=== PATIENT | female | born 1960 ===

== ENCOUNTER 2019-02-04 00:24 | Emergency (ER) | payer OTHER ==
[2019-02-04 00:27] VITALS: BMI 29.2
--- NOTE | 2019-02-04 00:46 | ED PDOC ---
Arrival/HPI - General Historian: Patient - History of Present Illness Narrative History of Present Illness (Text): Patient is a 58 year old female with no significant past history presenting with chief complaint of head trauma which occurred within the past hour. Patient was at a social event where she had a few alcoholic drinks, tripped on stairs and fell. Admits to headache and some pain in her left hand. Denies dizziness, loss of consciousness, nausea, vomiting, hearing or vision changes. Time/Duration: 1 hour Symptom Onset: Sudden Symptom Course: Unchanged Quality: Aching Context: Tripped <Viridiana Quiñonezleandro Micki - Last Filed: 02/04/19 02:34> <Del Guzmán - Last Filed: 02/04/19 19:17> - General Chief Complaint: Trauma Past Medical History - Provider Review Nursing Documentation Reviewed: Yes - Psychiatric Hx Substance Use: No - Anesthesia Hx Anesthesia: No <Viridiana Quiñonezleandro Sweet - Last Filed: 02/04/19 02:34> Family/Social History - Physician Review Nursing Documentation Reviewed: Yes Family/Social History: No Known Family HX Smoking Status: Never Smoked Hx Alcohol Use: Yes Hx Substance Use: No <Viridiana Quiñonezleandro Micki - Last Filed: 02/04/19 02:34> Allergies/Home Meds <Viridiana Quiñonezleandro Sweet - Last Filed: 02/04/19 02:34> <Del Guzmán - Last Filed: 02/04/19 19:17> Allergies/Adverse Reactions: Allergies No Known Allergies Allergy (Verified 02/04/19 00:27) Home Medications: Home Meds Medication Instructions Recorded Confirmed No Known Home Med 02/04/19 02/04/19 Review of Systems - Physician Review All systems were reviewed & negative as marked: Yes - Review of Systems Respiratory: Normal Cardiovascular: Normal Gastrointestinal: Normal Neurological: Headache <Viridiana Quiñonezleandro Micki - Last Filed: 02/04/19 02:34> Physical Exam Vital Signs Reviewed: Yes Appearance: Positive for: Non-Toxic Pain Distress: Mild Mental Status: Positive for: Alert and Oriented X 3 - Systems Exam Head: Present: Swelling Pupils: Present: PERRL Extroacular Muscles: Present: EOMI Conjunctiva: Present: Normal Mouth: Present: Moist Mucous Membranes Neck: Present: Normal Range of Motion Respiratory/Chest: Present: Clear to Auscultation, Good Air Exchange. No: Respiratory Distress, Accessory Muscle Use Cardiovascular: Present: Regular Rate and Rhythm, Normal S1, S2 Abdomen: Present: Normal Bowel Sounds. No: Tenderness, Distention Neurological: Present: GCS=15, CN II-XII Intact, Speech Normal, Motor Func Grossly Intact Skin: Present: Warm, Dry, Normal Color Psychiatric: Present: Alert, Oriented x 3, Normal Insight, Normal Concentration <Min Quiñonez - Last Filed: 02/04/19 02:34> Vital Signs Temp Pulse Resp BP Pulse Ox 02/04/19 01:15 97.6 F 80 20 138/78 95 <Del Guzmán - Last Filed: 02/04/19 19:17> Medical Decision Making - Lab Interpretations I have reviewed the lab results: Yes - RAD Interpretation Radiology Orders: 02/04/19 00:40 HEAD W/O CONTRAST [CT] Stat - Medication Orders Current Medication Orders: Discontinued Medications Ibuprofen (Motrin Tab) 600 mg PO ONCE ONE Stop: 02/04/19 00:43 <Min Quiñonez - Last Filed: 02/04/19 02:34> ED Course and Treatment: Impression: Pt seen and evaluated with medical insurance biller. Aware and agree with HPI, clinical findings, plan, and management. Pt, with no significant past medical history, presented s/p trip and falal earlier this evening. Pt reports she hit her head and notes some left hand pain. Plan: -- CT Head w/o contrast -- EKG -- XR Left Hand -- Labs -- Motrin -- Reassess and disposition Progress Notes: 02/04/19 02:27 CT Head: BRAIN: No evidence for acute intracranial hemorrhage. No midline shift or mass effect. VENTRICLES: No hydrocephalus. ORBITS: The orbits are unremarkable. SINUSES AND MASTOIDS: The paranasal sinuses and mastoid air cells are clear. BONES: No evidence for displaced calvarial fracture. SOFT TISSUES: There is soft tissue swelling and hematoma at the right parietal scalp. MISCELLANEOUS: No evidence for acute territorial infarction. IMPRESSION: 1. There is soft tissue swelling and hematoma at the right parietal scalp. 2. No evidence for acute intracranial abnormality. Electronically signed on Feb 04, 2019 2:26:13 AM EDT by: Jeremy Gustafson M.D., Certified by MISA, MSK, Neuroradiology - Lab Interpretations Lab Results: Total Bilirubin 0.3 mg/dL (0.2-1.3) 02/04/19 00:52 AST 46 U/L (14-36) H 02/04/19 00:52 ALT 27 U/L (7-56) 02/04/19 00:52 Alkaline Phosphatase 114 U/L (38-126) 02/04/19 00:52 Total Protein 7.3 g/dL (5.8-8.3) 02/04/19 00:52 Albumin 4.2 g/dL (3.0-4.8) 02/04/19 00:52 Globulin 3.0 gm/dL 02/04/19 00:52 Albumin/Globulin Ratio 1.4 (1.1-1.8) 02/04/19 00:52 - RAD Interpretation Radiology Orders: 02/04/19 00:40 HEAD W/O CONTRAST [CT] Stat 02/04/19 00:46 HAND LEFT 3 VIEWS ROUTINE [RAD] Stat - Medication Orders Current Medication Orders: Discontinued Medications Ibuprofen (Motrin Tab) 600 mg PO ONCE ONE Stop: 02/04/19 00:43 Last Admin: 02/04/19 01:16 Dose: 600 mg MAR Pain/Vitals Document 02/04/19 01:16 LAC (Rec: 02/04/19 01:16 LAC [id number]) Pain Reassessment Is This A Pain ReAssessment? No Sleep Is patient sleeping during reassessment? No <Del Guzmán - Last Filed: 02/04/19 19:17> - PA / CERTIFIED PATHOLOGY ASSISTANT / Resident Statement / has reviewed & agrees with the documentation as recorded. / has examined the patient and agrees with the treatment plan. <Del Guzmán - Last Filed: 02/04/19 19:17> Disposition/Present on Arrival - Present on Arrival Any Indicators Present on Arrival: No History of DVT/PE: No History of Uncontrolled Diabetes: No Urinary Catheter: No History of Decub. Ulcer: No History Surgical Site Infection Following: None - Disposition Have Diagnosis and Disposition been Completed?: Yes Disposition Time: 02:31 Patient Plan: Discharge <Min Quiñonez - Last Filed: 02/04/19 02:34> <Del Guzmán - Last Filed: 02/04/19 19:17> - Disposition Diagnosis: Head trauma Disposition: HOME/ ROUTINE Condition: STABLE Discharge Instructions (ExitCare): Minor Head Injury (DC) Print Language: JAPANESE Additional Instructions: Follow up with your primary medical doctor with 3-5 days Return to ED if symptoms return or worsen Forms: [email or web address] (Romanian)
[2019-02-04 01:04] LABS: BASO # 0.02 K/mm3 (0.0-2.0); BASO % 0.3 % (0.0-3.0); EOS # 0.2 (0.0-0.7); EOS % 3.1 % (1.5-5.0); HEMOGLOBIN 13.5 g/dL (12.0-16.0); LYMPH # 2.9 (1.2-3.4); LYMPH % 49.2 % (22.0-35.0); MEAN CELL VOLUME 95.7 fl (80.0-105.0); MEAN CORPUSCULAR HGB CONC 33.4 g/dl (31.0-37.0); MEAN PLATELET VOLUME 9.8 fl (7.0-11.0); MONO # 0.4 (0.1-0.6); MONO % 7.6 % (1.0-6.0); RBC 4.22 10^6/uL (3.5-6.1); WHITE BLOOD COUNT 5.8 10^3/uL (4.5-11.0)
[2019-02-04 01:11] LABS: ALB/GLOB RATIO 1.4 (1.1-1.8); ALBUMIN 4.2 g/dL (3.0-4.8); ALT/SGPT 27 U/L (7-56); AST/SGOT 46 U/L (14-36); BLOOD UREA NITROGEN 15 mg/dL (7-21); GFR NON-AFRICAN AMERICAN 57
[2019-02-04 01:18] VITALS: TEMP 97.6
[2019-02-04 02:46] VITALS: BP 131/67; PULSE 84; RESP 18; O2SAT 96
--- NOTE | 2019-02-04 09:57 | CT ---
Date of service: 02/04/2019 PROCEDURE: CT HEAD WITHOUT CONTRAST. HISTORY: Status post fall COMPARISON: None available. TECHNIQUE: Axial computed tomography images were obtained through the head/brain without intravenous contrast. Radiation dose: Total exam DLP = 864.98 mGy-cm. This CT exam was performed using one or more of the following dose reduction techniques: Automated exposure control, adjustment of the mA and/or kV according to patient size, and/or use of iterative reconstruction technique. FINDINGS: HEMORRHAGE: No parenchymal subarachnoid hemorrhage. BRAIN: No mass effect or edema. No atrophy or chronic microvascular ischemic changes. Mild age-appropriate volume loss VENTRICLES: No obstructive hydrocephalus. CALVARIUM: No calvarial. Localized posterior superior parietal contusion/soft tissue swelling PARANASAL SINUSES: Unremarkable as visualized. No significant inflammatory changes. MASTOID AIR CELLS: Unremarkable as visualized. No inflammatory changes. OTHER FINDINGS: None. IMPRESSION: No acute intracranial hemorrhage. Mild localized right posterior superior parietal scalp contusion.
--- NOTE | 2019-02-04 14:28 | RAD ---
PROCEDURE: Left Hand Radiographs. HISTORY: Status post fall COMPARISON: None. TECHNIQUE: 3 views obtained. FINDINGS: BONES: Normal. No fracture. JOINTS: Normal. No osteoarthritic changes. SOFT TISSUES: Normal. OTHER FINDINGS: None. IMPRESSION: Normal left hand radiographs.
== END 2019-02-04 02:45 | disposition home or self-care (01) ==
LOC: EDBD → ED 00:24
DX: S09.90XA Unspecified injury of head, initial encounter (principal); W10.9XXA Fall (on) (from) unspecified stairs and steps, initial encounter; Y92.89 Other specified places as the place of occurrence of the external cause